=== PATIENT | female | born 2005 | race Caucasian/White ===

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

== ENCOUNTER → 2024-03-30 | Outpatient (CLI) | payer OTHER ==
[2024-03-30 19:16] LABS: CHOL/HDL RATIO 3.6; Cholesterol 217 mg/dL (50-200); Ferritin, Serum 15 ng/mL (8-252); Glucose, Blood 88 mg/dL (70-99); HDL Cholesterol 61 mg/dL (>39); Iron Serum 106 ug/dL (50-170); LDL/HDL RATIO 2.2; Low Density Lipoprotein Chol 136 mg/dL (0-110); Percent Saturation 24.2 % (15.0-50.0); Total Iron Binding Capacity 438 ug/dL (250-450); Triglycerides 100 mg/dL (30-140); Very Low Density Lipoprot Chol 20 mg/dL (6-28)
[2024-04-02 08:48] LABS: DHEAS 269 ug/dL (148-407)
[2024-04-05 05:56] LABS: TESTOSTERONE BY MASS SPEC 61 ng/dL (9-55)
[2024-04-05 14:32] LABS: 17-HYDROXYPROGESTERONE 69.03 ng/dL (<=206.00)
== END | disposition home or self-care (01) ==
LOC: LAB 16:33 → LAB SHORT 16:33
PROVIDERS: General Practice
DX: E28.2 Polycystic ovarian syndrome (principal); L65.9 Nonscarring hair loss, unspecified
CPT/HCPCS: 80061; 82306; 82627; 82728; 82947; 83498; 83540; 83550; 84146; 84403; 84443

== ENCOUNTER → 2024-11-20 | Outpatient (CLI) | payer OTHER ==
[2024-11-20 19:32] LABS: Chlamydia Trachomatis Urine NOT DETECTED (NOT DETECT); Neisseria Gonorrhoea Urine NOT DETECTED (NOT DETECT)
== END | disposition home or self-care (01) ==
LOC: LAB SHORT 13:11 → LAB 13:11
PROVIDERS: General Practice
DX: E28.2 Polycystic ovarian syndrome (principal)
CPT/HCPCS: 87491; 87591